=== PATIENT | male | born 2000 | race Caucasian/White ===

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

== ENCOUNTER 2018-05-22 21:49 | Emergency (ER) | payer OTHER ==
--- NOTE | 2018-05-22 22:21 | EDPHY ---
H & P Smoking Status: Current some day smoker Time Seen by Provider: 05/22/18 22:09 HPI/ROS: CHIEF COMPLAINT: Left facial swelling HISTORY OF PRESENT ILLNESS: 18-year-old male, immunocompetent, up-to-date with vaccinations including mumps, complaining of atraumatic left facial swelling and pain. No fever no chills. Positive pain with chewing. No submandibular submental pain. No testicular pain. No rash. No intraoral lesions. PRIMARY CARE PROVIDER: REVIEW OF SYSTEMS: 10 systems reviewed and negative with the exception of the elements mentioned in the history of present illness PAST MEDICAL & SURGICAL HISTORY: Up-to-date with vaccinations SOCIAL HISTORY: Nonsmoker PHYSICAL EXAM (Prior to examination, patient consented to physical exam, hands were washed and my usual and customary physical exam procedures followed) 1) GENERAL: Well-developed, well-nourished, alert and oriented. Appears to be in no acute distress. 2) HEAD: Normocephalic, atraumatic 3) HEENT: Pupils equal, round, reactive to light bilaterally. Sclera anicteric. Asymmetrical left facial swelling noted. No overlying skin changes. No crepitus. No vesicles. Negative Paredes sign. No submental submandibular or sublingual tenderness or induration or erythema. No rash. No intraoral lesions. No tonsillar enlargement or exudate. Nasopharynx, oropharynx, clear, no lesions. MoistDry mucous membranes. Ears bilaterally with normal tympanic membranes. 4) NECK: Full range of motion, no meningeal signs. 5) LUNGS: Clear auscultation bilaterally, no wheezes, no rhonchi, no retractions. 6) HEART: Regular rate and rhythm, no murmur, no heave, no gallop. 7) ABDOMEN: No guarding, no rebound, no focal tenderness, negative McBurney's, negative Sigala's, negative Rovsing's, negative peritoneal sign, 8) MUSCULOSKELETAL: Moving all extremities, no focal areas of tenderness, no obvious trauma. No peripheral edema or discoloration. 9) BACK: No CVA tenderness, no midline vertebral tenderness, no fluctuance, no step-off, no obvious trauma, no visual or palpable abnormality. 10) SKIN: No rash, no petechiae. 11) Psychiatric: Patient is oriented X 3, there is no agitation. DIFFERENTIAL DIAGNOSIS: In no particular include but limited to facial abscess , mumps, sialoadenitis (Ernst Ko) Constitutional: Initial Vital Signs Temperature (C) 37.4 C 05/22/18 21:50 Heart Rate 74 05/22/18 21:50 Respiratory Rate 16 05/22/18 21:50 Blood Pressure 155/73 H 05/22/18 21:50 O2 Sat (%) 95 05/22/18 21:50 O2 Delivery Mode Room Air Allergies/Adverse Reactions: No Known Allergies Allergy (Verified 05/22/18 21:53) Home Medications: Medication Instructions Recorded NK [No Known Home Meds] 05/22/18 MDM/Departure - MDM Imaging Results: Images reviewed myself (Ernst oK) ED Course/Re-evaluation: PHYSICIAN DOCUMENTATION: The patient was evaluated and managed by the Physician Mainstreaming Facilitator. My co- signature indicates that I have reviewed this chart and I agree with the findings and plan of care as documented. I am the secondary supervising physician. (Emily Abreu) Care of patient under supervision of secondary supervising physician Dr Abreu with whom I discussed case. Patient has been re-evaluated with serial exams most recently at 12:05 a.m.. He is smiling, laughing, talking with his friend. I think that suppurative parotitis is less than likely in this patient. Doubt months. I have discussed and recommended sialagogues, warm compresses, Tylenol , Motrin for discomfort, follow up with ENT. I do not think that antibiotics, emergent ENT consultation or hospitalization indicated at this time. He has been given ENT referral I recommended follow up with ENT. He feels comfortable being discharged. My usual and customary precautions instructions regarding his diagnosis have been provided. (Ernst Ko) - Depart Disposition: Home, Routine, Self-Care Clinical Impression: Parotitis not due to mumps Condition: Good Instructions: Sialoadenitis (ED) Additional Instructions: Eat sour candy. Apply warm compresses to the area. Return to the ER if you develop fevers, worsening pain or swelling or any other symptoms that concern you. Referrals: Rosario Nino MD [Medical Doctor] - 2-3 days, call for appt.
[2018-05-22] MEDS ORDERED: IOHEXOL 350mgI/ML (OMNIPAQUE) 150 ML BTL IV ONE (22:37)
[2018-05-22 22:49] LABS: PLATELET COUNT 224 10^3/uL (150-400)
[2018-05-23 00:21] VITALS: BP 132/70
== END 2018-05-23 00:20 | disposition home or self-care (01) ==
DX: K11.20 Sialoadenitis, unspecified (principal)
CPT/HCPCS: 82435-PO; 82565-PO; 82947-PO; 84132-PO; 84295-PO; 84520-PO; 85014-ER; Q9967